=== PATIENT | male | born 1990 | race African-American/Black ===

== ENCOUNTER 2017-01-28 07:25 | Emergency (ER) | payer OTHER ==
[~2017-01-28] VITALS: Ht 182.9 cm; Wt 91.5 kg
[2017-01-28 07:29] VITALS: Ht 182.9 cm; Wt 91.5 kg
[2017-01-28] MEDS ORDERED: DIAZEPAM 5 MG TAB PO STA (07:53)
[2017-01-28] MEDS ORDERED: KETOROLAC 30 MG INJ IM STA (07:53)
--- NOTE | 2017-01-28 08:55 | RADRPT ---
PROCEDURE: XR Chest. CLINICAL INDICATION: Dyspnea. TECHNIQUE: Single frontal chest x-ray. COMPARISON: None available. FINDINGS: The cardiomediastinal silhouette is within normal limits. The lungs are clear without focal consol idation, effusion, or pneumothorax. There are no acute osseous abnormalities. IMPRESSION: 1. No acute cardiopulmonary abnormality. RPTAT: GG .Esau Shankar MD, MD Date Time Electronically viewed and signed by .Esau Shankar MD, on 01/28/2017 08:55 .P/
[2017-01-28] MEDS ORDERED: NAPR-688 PO (09:02)
[2017-01-28] MEDS ORDERED: CYCL-319 PO (09:02)
--- NOTE | 2017-01-28 11:18 | ERD ---
ER Documentation Chief Complaint Date/Time DATE: 01/28/17 TIME: 11:15 Chief Complaint back pain x 3 days HPI This is a 27-year-old male presenting to the emergency department complaining of left posterior thoracic back pain for the past 3 days, patient rates the pain as sharp moderate in severity and increased with taking a deep breath and and movement. Patient denies any trauma. He denies any neuro deficits. He denies taking any medication for this ROS All systems reviewed and are negative except as per history of present illness. Medications Home Meds Active Scripts Cyclobenzaprine Hcl* (Cyclobenzaprine Hcl*) 10 Mg Tablet, 10 MG PO TID, #20 TAB Prov:TAMERA WERNER PA-C 01/28/17 Naproxen* (Naproxen*) 500 Mg Tablet, 500 MG PO BID, #30 TAB Prov:TAMERA WERNER PA-C 01/28/17 PMhx/Soc History of Surgery: No Anesthesia Reaction: No Hx Neurological Disorder: No Hx Respiratory Disorders: No Hx Cardiac Disorders: No Hx Psychiatric Problems: No Hx Miscellaneous Medical Probl: No Hx Alcohol Use: No Hx Substance Use: No Hx Tobacco Use: No Smoking Status: Never smoker Physical Exam Vitals Vital Signs Date Time Temp Pulse Resp B/P Pulse Ox O2 Delivery O2 Flow Rate FiO2 01/28/17 07:29 98.1 82 18 137/82 99 Physical Exam GENERAL: WD/WN, in no apparent distress, non-toxic appearing HENT: NC/AT EYES: Conjunctiva normal NECK: Supple PULM: Normal labored breathing, clear to auscultation bilaterally CV: Good capillary refill GI: Non-distended, no guarding BACK: no deformities noted, normal spinal curvature, TTP on left thoracic/ scapula region, non-tender on spine midline EXT: No clubbing, cyanosis, or edema NEURO: Moves on all fours, sensation intact, normal gait SKIN: intact PSYCH: Normal mood Results 24 hrs Current Medications Medications (Trade) Dose Ordered Sig/Lauren Route PRN Reason Start Time Stop Time Status Last Admin Dose Admin Ketorolac Tromethamine (Toradol) 30 mg ONCE STAT IM 01/28/17 07:53 01/28/17 07:55 DC 01/28/17 08:03 Diazepam (Valium) 5 mg ONCE STAT PO 01/28/17 07:53 01/28/17 07:55 DC 01/28/17 08:00 Procedures/MDM This is a 27-year-old male presenting to the emergency department complaining of left posterior back pain which is most consistent with a thoracic strain. low suspicion for spinal abscess, vertebral fracture, cauda equina syndrome, spinal stenosis due to physical examination. I doubt any intra-thoracic acute pathology, a chest x-ray was done in the ED and radiologist is unremarkable. In the ED patient was given Toradol and a low dose Valium for muscle relaxer Patient is neurovascularly intact and stable for discharge for home. Prescriptions naproxen and Flexeril was given to patient, discussed to return to the ED if not improving as expected or follow-up with a primary care physician. Patient understood and agreed with this plan. Departure Diagnosis: Primary Impression: Thoracic myofascial strain Condition: Stable Patient Instructions: Thoracic Strain Additional Instructions: FOLLOW UP WITH YOUR PRIMARY CARE PHYSICIAN TOMORROW.Return to this facility if you are not improving as expected. Take all medicines as directed. Return to this facility if you are not improving as expected. TAMERA WERNER PA-C Jan 28, 2017 11:18
== END 2017-01-28 09:22 | disposition home or self-care (01) ==
LOC: FTE 07:25
DX: S29.012A Strain of muscle and tendon of back wall of thorax, initial encounter (principal); X58.XXXA Exposure to other specified factors, initial encounter; Y92.9 Unspecified place or not applicable
CPT/HCPCS: 71010; J1885; Z7610; 96372